=== PATIENT | male | born 1965 | race Caucasian/White ===

== ENCOUNTER 2016-12-30 10:40 | Emergency (ER) | payer OTHER ==
[~2016-12-30] VITALS: Ht 180.3 cm; Wt 72.6 kg
--- NOTE | 2016-12-30 11:10 | ER.PDOC ---
General Chief Complaint: Flank Pain Stated Complaint: ABD PAIN RADIATING TO LOWER BACK Time seen by MD: 11:10 Source: patient Exam Limitations: no limitations History of Present Illness Initial Comments left flank, abd pain, prior history of kidney stone. feels diferent this time tho. Present for 2 weeks, getting worse Timing/Duration: other (2 weeks) Severity/Quality: moderate Radiation: no radiation Associated Symptoms: denies symptoms Exacerbated by: nothing Relieved By: nothing Allergies: Coded Allergies: Penicillins (Verified Allergy, Unknown, Anaphylaxis Shock, 12/30/16) Vital Signs First Vital Signs Date Time Temp Pulse Resp B/P (MAP) Pulse Ox O2 Delivery O2 Flow Rate FiO2 12/30/16 10:54 98.2 65 18 98 12/30/16 10:59 148/91 (110) Last Vital Signs Date Time Temp Pulse Resp B/P (MAP) Pulse Ox O2 Delivery O2 Flow Rate FiO2 12/30/16 10:59 98.2 65 18 148/91 (110) 98 Past Medical History Medical History: no pertinent history Surgical History: no surgical history Social History Smoking: greater than 1 pack/day Alcohol Use: occassionally Drug Use: marijuana Reviewed Nursing Reviewed: Vital Signs, Abn. Noted, Nursing Assessment Constitutional: no symptoms reported EENTM: no symptoms reported Respiratory: no symptoms reported Cardiovascular: no symptoms reported Gastrointestinal: see HPI Genitourinary: no symptoms reported Musculoskeletal: no symptoms reported Skin: no symptoms reported Psychiatric/Neurological: no symptoms reported Endocrine: no symptoms reported Hematologic/Lymphatic: no symptoms reported All Other Systems: Reviewed and Negative Physical Exam General Appearance: No Apparent Distress, WD/WN HEENT: PERRL/EOMI, Normal ENT Inspection, TMs Normal, Pharynx Normal Neck: Non-Tender, Full Range of Motion, Supple, Normal Inspection Respiratory: chest non-tender, lungs clear, normal breath sounds, no respiratory distress, no accessory muscle use Cardiovascular: Normal Peripheral Pulses, Regular Rate, Rhythm, No Edema, No Gallop, No JVD, No Murmur Gastrointestinal: Normal Bowel Sounds, Soft, Tenderness (llq, mild, no guard or rebound) Back: Normal Inspection, No CVA Tenderness, No Vertebral Tenderness Extremities: Normal Range of Motion, Non-Tender, Normal Inspection, No Pedal Edema, No Calf Tenderness, Normal Capillary Refill, Pelvis Stable Neurologic/Psychiatric: manager quantitative II-XII NML as Tested, No Motor/Sensory Deficits, Alert, Normal Mood/Affect, Oriented x 3 Skin: Normal Color, Warm/Dry Lymphatic: No Adenopathy Results/Orders Results/Orders Laboratory Tests Test 12/30/16 11:30 12/30/16 13:00 White Blood Count 6.8 10^3/uL Red Blood Count 4.94 10^6/uL Hemoglobin 16.4 g/dL Hematocrit 45.8 % Mean Corpuscular Volume 92.7 fL Mean Corpuscular Hemoglobin 33.2 pg Mean Corpuscular Hemoglobin Concent 35.8 g/dL Red Cell Distribution Width 11.6 % Platelet Count 205 10^3/uL Mean Platelet Volume 9.6 fL Neutrophils (%) (Auto) 69.1 % Lymphocytes (%) (Auto) 17.7 % Monocytes (%) (Auto) 11.0 % Neutrophils # (Auto) 4.7 10^3/uL Lymphocytes # (Auto) 1.2 10^3/uL Monocytes # (Auto) 0.8 10^3/uL Absolute Immature Granulocyte (auto 0.01 10^3 u/L Eosinophils % 1.8 % Basophils % 0.3 % Basophils # 0.0 10^3/uL Eosinophil Count 0.1 10^3/uL Prothrombin Time 11.0 SEC Prothromb Time International Ratio 1.0 Activated Partial Thromboplast Time 24.7 SEC Sodium Level 138 mmol/L Potassium Level 4.2 mmol/L Chloride Level 103.0 mmol/L Carbon Dioxide Level 29.1 mmol/L Anion Gap 10.1 Blood Urea Nitrogen 17 mg/dL Creatinine 0.93 mg/dL Estimated GFR () 103.6 BUN/Creatinine Ratio 18.0 Glucose Level 131 mg/dL Calculated Osmolality 289.0 Calcium Level 8.8 mg/dL Total Bilirubin 0.8 mg/dL Aspartate Amino Transf (AST/SGOT) 17 U/L Alanine Aminotransferase (ALT/SGPT) 27 U/L Alkaline Phosphatase 43 U/L Total Protein 7.3 g/dL Albumin 4.1 g/dL Globulin 3.2 Percent Immature Gran (Cell Imm) 0.10 % Urine Collection Type Void Urine Color Na Urine Appearance Clear Urine Bilirubin Negative MG/DL Urine Ketones Negative Urine Specific [place] 1.020 Urine pH 6.0 Urine Protein Negative Urine Urobilinogen Negative Urine Nitrate Negative Urine Leukocyte Esterase Negative Urine Blood Negative Urine Glucose Negative Current Medications Medications (Trade) Dose Ordered Sig/Monica Route PRN Reason Start Time Stop Time Status Last Admin Dose Admin Ketorolac Tromethamine (Toradol) 30 mg STAT STAT IV 12/30/16 15:29 12/30/16 15:31 DC 12/30/16 15:46 Ketorolac Tromethamine (Toradol) 30 mg STK-MED ONCE .ROUTE 12/30/16 15:35 12/30/16 15:36 DC Progress Progress There are findings of mild sigmoid diverticulosis without CT findings of diverticulitis. No acute abnormalities are seen in the abdomen and pelvis. EKG/XRAY/CT/US CT Comments: ct abd/pelvis W/Wo as per above Course Blood Pressure Systolic: 148 Blood Pressure Diastolic: 91 Blood Pressure Mean: 110 Departure Time of Disposition: 15:42 Disposition: 01 HOME, SELF-CARE Impression: Primary Impression: LLQ abdominal pain Additional Impression: Diverticulitis Condition: Stable Additional Instructions: cipro 500 bid 7 days Flagyl 500mg po QID 7 days See PCP Problem Qualifiers Additional Impression: Diverticulitis Diverticulitis site: large intestine Diverticulitis bleeding: without bleeding Diverticulitis complication: unspecified complication status Qualified Codes: K57.32 - Diverticulitis of large intestine without perforation or abscess without bleeding SHIKHA HOWELL MD Dec 30, 2016 11:10
[2016-12-30 11:35] LABS: BASOPHIL % 0.3 % (0.0-0.2); EOSINOPHIL # 0.1 10^3/uL (0.0-0.2); EOSINOPHIL % 1.8 % (0.0-5.0); HEMATOCRIT 45.8 % (37.0-53.0); HEMOGLOBIN 16.4 g/dL (13.9-16.3); LYMPHOCYTES # 1.2 10^3/uL (1.0-4.8); LYMPHOCYTES % 17.7 % (24.0-44.0); MEAN CELL HGB 33.2 pg (26-34); MEAN CELL HGB CONCENTRATION 35.8 g/dL (33-37); MEAN CORP VOLUME 92.7 fL (78-100); MEAN PLATELET VOLUME 9.6 fL (7.8-11.0); MONOCYTES # 0.8 10^3/uL (0.3-0.8); NEUTROPHIL # 4.7 10^3/uL (1.8-7.7); NEUTROPHILS % 69.1 % (41.0-85.0); RED CELL DISTRIBUTION WIDTH 11.6 % (11.5-14.5); WHITE BLOOD CELL 6.8 10^3/uL (4.5-11.0)
[2016-12-30 11:56] LABS: CALCIUM 8.8 mg/dL (8.4-10.5); CARBON DIOXIDE 29.1 mmol/L (20.0-32)
--- NOTE | 2016-12-30 12:13 | DIREP ---
PROCEDURE:CT ABD/PELVIS WITHOUT CONTRAST TECHNIQUE:No oral contrast was given. Axial cuts were obtained from the dome of the diaphragm to the ischial tuberosities. No intravenous contrast was given. The images were viewed at lung and soft tissue settings. Sagittal and coronal reconstructions are provided. COMPARISON:None. INDICATIONS:history of renal stones, left abd and back pain FINDINGS: LOWER CHEST:The lung bases are clear. LIVER:Normal. BILIARY:Normal. PANCREAS:Normal. SPLEEN:Normal. URINARY TRACT:Normal. ADRENALS:Normal. AORTA/VASCULAR:Minimal atherosclerotic disease noted within the infrarenal abdominal aorta. RETROPERITONEUM:Normal. BOWEL/MESENTERY:No significant diverticular disease is demonstrated. The appendix appears normal. ABDOMINAL WALL:Normal. PELVIS:Normal. BONES:Normal. OTHER:Normal. CONCLUSION: 1. Negative CT scan of the abdomen and pelvis. Dictated by: Artemio Khan M.D. on 12/30/2016 at 12:06 PM
[2016-12-30 13:42] LABS: APPEARANCE,URINE CLEAR (CLEAR); BILIRUBIN,URINE NEGATIVE (NEGATIVE); UA COLOR AMBER (YELLOW)
[2016-12-30 13:43] LABS: UROBILINOGEN,URINE NEGATIVE (NEGATIVE)
[2016-12-30] MEDS ORDERED: TORADOL IV STA (15:29)
[2016-12-30] MEDS ORDERED: TORADOL ONE (15:35)
--- NOTE | 2016-12-30 15:38 | DIREP ---
PROCEDURE:CT ABDOMEN/PELVIS W/ CONTRAST COMPARISON:[facility], CT, CT ABD/PELVIS W/O, 12/30/2016, 11:51 AM. INDICATIONS:LLQ pain, flank pain TECHNIQUE:Axial images were created through the abdomen and pelvis with non-ionic intravenous contrast material. Oral contrast was administered. Sagittal and coronal reconstructions were performed from source images. FINDINGS: LUNG BASES:Normal. No visible pulmonary or pleural disease. LIVER:Normal. No significant liver lesions are identified. BILIARY:Normal. No visible dilatation or calcification. PANCREAS:Normal. No lesion, fluid collection, ductal dilatation, or atrophy. SPLEEN:Normal. No enlargement or focal lesion. ADRENALS:Normal. No mass or enlargement. URINARY TRACT:Normal. No focal lesions or hydronephrosis. AORTA/VASCULAR:Normal. No aneurysm. RETROPERITONEUM:Normal. No mass or adenopathy. BOWEL/MESENTERY:There are a few diverticula of the sigmoid colon. No dilated loops of large or small bowel or inflammatory changes are seen. No free fluid or free air is seen. The appendix is normal. ABDOMINAL WALL:Normal. No mass or hernia. PELVIC ORGANS:Normal. No visible mass. Pelvic organs appropriate for patient age. BONES:Normal for age. No bony lesion or acute fracture. OTHER:Negative. CONCLUSION: There are findings of mild sigmoid diverticulosis without CT findings of diverticulitis. No acute abnormalities are seen in the abdomen and pelvis. Dictated by: Moises Luna M.D. On 12/30/2016 at 03:32 PM
== END 2016-12-30 16:00 | disposition home or self-care (01) ==
LOC: ER 10:40
DX: K57.32 Diverticulitis of large intestine without perforation or abscess without bleeding (principal); R10.32 Left lower quadrant pain; F12.10 Cannabis abuse, uncomplicated; F17.200 Nicotine dependence, unspecified, uncomplicated; Z88.0 Allergy status to penicillin; Z87.442 Personal history of urinary calculi
CPT/HCPCS: 36415; 74176; 74177; 80053; 81002; 85025; 85610; 85730; 96374; 99285; J1885; Q9967